=== PATIENT | male | born 1955 | race Two or more races ===

== ENCOUNTER 2022-03-28 12:12 | Emergency (ER) | payer MEDICARE, OTHER ==
[~2022-03-28] VITALS: Ht 175.3 cm; Wt 102.1 kg
[2022-03-28 12:15] VITALS: BP 145/93
== END 2022-03-28 16:49 | disposition left against medical advice (07) ==
LOC: ER 12:12
DX: M79.604 Pain in right leg (principal); Z53.21 Procedure and treatment not carried out due to patient leaving prior to being seen by health care provider

== ENCOUNTER 2023-04-18 13:54 | Inpatient (IN) | payer MEDICARE ==
[~2023-04-18] VITALS: Ht 175.3 cm; Wt 83.1 kg
[2023-04-18 14:09] VITALS: BP 116/77
[2023-04-18 15:52] LABS: Hematocrit 42.6 % (41.0-53.0); Red Cell Distribution Width 15.8 % (11.8-14.3)
[2023-04-18 15:55] LABS: Hemoglobin 14.1 g/dL (13.5-17.5); Mean Corpuscular Hemoglobin 28.2 pg (28.0-32.0); Mean Corpuscular Hgb Conc. 33.2 g/dL (32.0-36.0); Mean Corpuscular Volume 84.8 fL (80.0-100.0); Red Blood Cells 5.02 10^6/uL (4.5-5.90)
[2023-04-18 16:15] LABS: Calcium 8.9 mg/dL (8.5-10.1); Potassium 4.4 mmol/L (3.5-5.1)
[2023-04-18 16:21] LABS: Albumin 3.6 g/dL (3.4-5.0); BUN/Creatinine Ratio 20.2 (10.0-20.0); Bilirubin, Total 0.7 mg/dL (0.2-1.0); Total Protein 7.6 g/dL (6.4-8.2)
[2023-04-18 16:30] LABS: Partial Thromboplastin Time 27.1 sec (24.6-33.4)
[2023-04-18 16:39] LABS: White Blood Cell 30.4 10^3/uL (4.4-10.8)
[2023-04-18 16:40] LABS: Band Neutrophils % (manual) 0; Basophils % (manual) 0 (0.0-2.0); Blast Cells 0; Metamyelocytes % 0; Myelocytes % 0; Promyelocytes % 0
[2023-04-18 17:23] LABS: Eosinophils % (manual) 1 (0-7); Lymphocytes % (manual) 65 (10.0-50.0); Monocytes % (manual) 6 (0-12); Reactive Lymphocytes 5
[2023-04-18] MEDS ORDERED: IBUP800T26 PO (18:40)
[2023-04-18] MEDS ORDERED: HYDR-4902 (18:40)
[2023-04-18] MEDS ORDERED: CEPH500C PO (18:40)
[2023-04-18] MEDS ORDERED: TAMS0.4C36 PO (18:40)
[2023-04-18] MEDS ORDERED: HYDR-4072 (18:40)
[2023-04-18] MEDS ORDERED: ATOR20TA50 PO (18:40)
[2023-04-18] MEDS ORDERED: FIN5T PO (18:40)
[2023-04-18] MEDS ORDERED: CIPR500T4 PO (18:40)
[2023-04-18] MEDS ORDERED: cefTRIAXone 1GM/50ML D5W 50 ML IV ONE (18:45)
[2023-04-18] MEDS ORDERED: ACETAMINOPHEN 325 MG TAB PO PRN (19:00)
[2023-04-18] MEDS ORDERED: SODIUM CHLORIDE 0.9% 1,000 ML IV SCH (19:00)
[2023-04-18] MEDS ORDERED: DEXTROSE (50%) 50ML SYRG IV PRN (19:00)
[2023-04-18] MEDS ORDERED: InsuLIN REG 1unit/0.01ml Soln (100units/ml) SC SCH (22:00)
[2023-04-18] MEDS ORDERED: ACCU-CHEK COMFORT CURVE STRIP VI SCH (22:00)
[2023-04-19] MEDS ORDERED: HYDROcodone-ACET 10/325MG TAB PO PRN
[2023-04-19] MEDS ORDERED: cefTRIAXone 1GM/50ML D5W 50 ML IV SCH (09:00)
[2023-04-19] MEDS ORDERED: FINASTERIDE 5 MG TAB PO SCH (10:00)
[2023-04-19] MEDS ORDERED: ATORVASTATIN 20 MG TAB PO SCH (10:00)
[2023-04-19] MEDS ORDERED: TAMSULOSIN HYDROCHLORIDE 0.4 MG CAP PO SCH (18:00)
== END 2023-04-19 02:19 | disposition left against medical advice (07) | DRG 696 ==
LOC: ER 13:54 → OVERFLOW 19:02
PROVIDERS: ADMIT Nurse Practitioner Family; ATTEND Nurse Practitioner Family
DX: R31.9 Hematuria, unspecified (principal); R33.9 Retention of urine, unspecified; Y83.8 Other surgical procedures as the cause of abnormal reaction of the patient, or of later complication, without mention of misadventure at the time of the procedure; Y82.8 Other medical devices associated with adverse incidents; E11.9 Type 2 diabetes mellitus without complications; Z85.6 Personal history of leukemia; Z87.442 Personal history of urinary calculi; Z53.29 Procedure and treatment not carried out because of patient's decision for other reasons
CPT/HCPCS: 36415; 71045; 80053; 83036; 85007; 85027; 85610; 85730; G0378